=== PATIENT | female | born 1940 | race Caucasian/White ===

== ENCOUNTER 2016-07-04 12:00 | Outpatient (CLI) | payer MEDICARE, OTHER | END 2016-07-04 12:01 | disposition home or self-care (01) | DX: Z12.31 Encounter for screening mammogram for malignant neoplasm of breast (principal) ==

== ENCOUNTER 2016-07-04 12:18 | Outpatient (CLI) | payer MEDICARE, OTHER | END 2016-07-04 12:19 | disposition home or self-care (01) | DX: M25.551 Pain in right hip (principal); Z96.641 Presence of right artificial hip joint ==

== ENCOUNTER 2016-09-11 15:10 | Emergency (ER) | payer MEDICARE, OTHER | END 2016-09-11 17:41 | disposition home or self-care (01) | DX: S00.03XA Contusion of scalp, initial encounter (principal); W01.198A Fall on same level from slipping, tripping and stumbling with subsequent striking against other object, initial encounter; Y93.K1 Activity, walking an animal; Y92.488 Other paved roadways as the place of occurrence of the external cause; I10 Essential (primary) hypertension; M81.0 Age-related osteoporosis without current pathological fracture ==

== ENCOUNTER 2016-09-24 14:42 | Outpatient (CLI) | payer MEDICARE, OTHER | END 2016-09-24 14:43 | disposition home or self-care (01) | DX: R10.2 Pelvic and perineal pain (principal) ==

== ENCOUNTER 2018-11-03 16:37 | Emergency (ER) | payer MEDICARE, OTHER ==
--- NOTE | 2018-11-03 16:45 | ED Physician Documentation ---
PD HPI UPPER EXT INJURY - Stated complaint Stated Complaint: L SHOULDER PX - Chief complaint Chief Complaint: Trauma Ext - History obtained from History obtained from: Patient - History of Present Illness Location: Left, Shoulder Type of injury: Fall (tripped and fell onto left shoulder, feeling snap as she fell. Pain in shoulder, and hurts with any slight ROM. Denies injury to head/neck/chest/abd.) Where injury occurred: [place] Timing - onset: How many hours ago (1), Today Timing - details: Abrupt onset, Still present Worsened by: Moving, Palpating Associated symptoms: No: Weakness, Numbness Contributing factors: No: Anticoagulated Similar symptoms before: Has not had sx before Recently seen: Not recently seen Review of Systems Skin: reports: Abrasion (s). denies: Laceration (s) Musculoskeletal: denies: Neck pain, Back pain Neurologic: reports: Head injury. denies: Focal weakness, Numbness PD PAST MEDICAL HISTORY - Past Medical History Cardiovascular: Hypertension Musculoskeletal: Osteoporosis - Past Surgical History Past Surgical History: Yes Ortho: Hip replacement - Present Medications Home Medications: Ambulatory Orders Medication Instructions Recorded Confirmed Naproxen 500 mg PO BID #20 tablet 11/03/18 Oxycodone HCl/Acetaminophen 1 - 2 each PO Q6H PRN #25 tablet 11/03/18 [Percocet 5-325 mg Tablet] - Allergies Allergies/Adverse Reactions: Allergies Allergy/AdvReac Type Severity Reaction Status Date / Time No Known Drug Allergies Allergy Verified 11/03/18 16:44 - Social History Does the pt smoke?: No Smoking Status: Never smoker Does the pt drink ETOH?: No Does the pt have substance abuse?: No - Immunizations Immunizations are current?: No PD ED PE NORMAL - Vitals Vital signs reviewed: Yes - General General: Alert and oriented X 3, Well developed/nourished, Other (appears in pain, guarding ROM of the left shoulder. ) - HEENT HEENT: Atraumatic - Neck Neck: Supple, no meningeal sign, No bony TTP, No adenopathy - Cardiac Cardiac: RRR, No murmur - Respiratory Respiratory: Clear bilaterally, Other (no chestwall tenderness) - Abdomen Abdomen: Soft, Non tender - Derm Derm: Normal color, Warm and dry - Extremities Extremities: Other (left shoulder with tenderness, and pain with any slight movement. There is somewhat of a stepoff deformity/soft area under AC joint on left. ) - Neuro Neuro: Alert and oriented X 3, No motor deficit, No sensory deficit Results - Vitals Vitals: Vital Signs - 24 hr 11/03/18 16:42 Temperature 37.0 C Heart Rate 80 Respiratory 18 Rate Blood Pressure 154/86 H O2 Saturation 100 Oxygen O2 Source Room air - Rads (name of study) left shoulder Radiology: Prelim report reviewed, EMP read contemporaneously (comminuted proximal humeral fracture at neck, with angulation. ), See rad report PD MEDICAL DECISION MAKING - ED course Complexity details: considered differential (I thought was dislocated clinically, but is fractured with angulation on xray. Gave PO meds and she says this will be okay. ), d/w patient Departure - Departure Disposition: 01 Home, Self Care Clinical Impression: Fall from slip, trip, or stumble Qualifiers: Encounter type: initial encounter Qualified Code(s): W01.0XXA - Fall on same level from slipping, tripping and stumbling without subsequent striking against object, initial encounter Proximal humerus fracture Qualifiers: Encounter type: initial encounter Fracture type: closed Fracture morphology: other fracture Fracture alignment: displaced Laterality: left Qualified Code(s): S42.292A - Other displaced fracture of upper end of left humerus, initial encounter for closed fracture Condition: Stable Record reviewed to determine appropriate education?: Yes Instructions: ED Fx Shoulder Follow-Up: David Paul MD [Provider Admit Priv/Credential] - Prescriptions: Naproxen 500 mg PO BID #20 tablet Oxycodone HCl/Acetaminophen [Percocet 5-325 mg Tablet] 1 - 2 each PO Q6H PRN #25 tablet PRN Reason: pain Comments: Sling and minimal movement for comfort. Follow up with Ortho next week; call tomorrow for appt. Naproxen twice daily. Add Tylonel or Percocet as needed for pains. Discharge Date/Time: 11/03/18 18:24
[2018-11-03 16:48] VITALS: BP 154/86
[2018-11-03] MEDS ORDERED: HYDROmorphone 1 MG/ML CARPUJECT IVP STA (17:08)
--- NOTE | 2018-11-03 17:38 | XRAY Report ---
Reason: shoulder inj Procedure Date: 11/03/2018 Accession Number: [id number] / [id number] Procedure: XR - Shoulder 3 View LT CPT Code: FULL RESULT: EXAM: LEFT SHOULDER RADIOGRAPHY EXAM DATE: 11/03/2018 05:27 PM. CLINICAL HISTORY: Shoulder inj. COMPARISON: None. TECHNIQUE: 3 views. FINDINGS: Bones: Positive for a comminuted acute fracture of the proximal left humerus. Fracture extends transversely across the humeral neck and across the base of the greater tuberosity. No scapula or clavicle fracture. Joints: No dislocation. Soft tissues: Negative for left pneumothorax. IMPRESSION: Comminuted acute proximal left humerus fracture. RADIA
[2018-11-03] MEDS ORDERED: oxyCODONE 5 MG TABLET PO STA (17:47)
[2018-11-03] MEDS ORDERED: IBUPROFEN 600 MG TABLET PO STA (17:47)
== END 2018-11-03 18:24 | disposition home or self-care (01) ==
LOC: ED 16:37
DX: S42.202A Unspecified fracture of upper end of left humerus, initial encounter for closed fracture (principal); W01.0XXA Fall on same level from slipping, tripping and stumbling without subsequent striking against object, initial encounter; Y92.830 Public park as the place of occurrence of the external cause; I10 Essential (primary) hypertension
CPT/HCPCS: 73030; 99283; A9270

== ENCOUNTER 2018-11-15 10:45 | Outpatient (CLI) | payer MEDICARE, OTHER ==
[2018-11-15 11:11] LABS: BASOPHILS # (AUTO) 0.1 10^3/uL (0.0-0.1); BASOPHILS % (AUTO) 0.9 %; EOSINOPHILS # (AUTO) 0.1 10^3/uL (0.0-0.7); EOSINOPHILS % (AUTO) 1.4 %; HGB - HEMOGLOBIN 13.6 g/dL (12.0-16.0); LYMPHOCYTES # (AUTO) 2.3 10^3/uL (1.5-3.5); LYMPHOCYTES % (AUTO) 22.6 %; MEAN CORPUSCULAR HGB CONC 34.3 g/dL (32.0-36.0); MEAN CORPUSCULAR VOLUME 87.4 fL (81.0-99.0); MEAN PLATELET VOLUME 6.7 fL (7.9-10.8); MONOCYTES # (AUTO) 1.1 10^3/uL (0.0-1.0); MONOCYTES % (AUTO) 10.3 %; NEUTROPHILS # (AUTO) 6.7 10^3/uL (1.5-6.6); NEUTROPHILS % (AUTO) 64.8 %; PLT - PLATELET COUNT 358 10^3/uL (130-450); RED BLOOD COUNT 4.52 10^6/uL (4.20-5.40); RED CELL DISTRIBUTION WIDTH 13.6 % (12.0-15.0); WHITE BLOOD COUNT 10.3 x10^3/uL (4.8-10.8)
[2018-11-15 11:15] LABS: BILIRUBIN,URINE NEGATIVE (NEGATIVE); GLUCOSE, URINE (UA) NEGATIVE (NEGATIVE); KETONES,URINE (UA) NEGATIVE (NEGATIVE); LEUKOCYTE ESTERASE, URINE MODERATE (NEGATIVE); NITRITE,URINE NEGATIVE (NEGATIVE); OCCULT BLOOD,URINE SMALL (NEGATIVE); PROTEIN,URINE TRACE mg/dL (NEGATIVE); UROBILINOGEN,URINE 0.2 (NORMAL) E.U./dL (NORMAL)
[2018-11-15 11:16] LABS: CLARITY,URINE CLOUDY (CLEAR)
[2018-11-15 11:22] LABS: ALBUMIN 4.3 g/dL (3.2-5.5); ALBUMIN/GLOBULIN RATIO 1.5 (1.0-2.2); BILIRUBIN,TOTAL 0.9 mg/dL (0.2-1.0); CALCIUM 9.4 mg/dL (8.5-10.3); CREATININE 0.8 mg/dL (0.4-1.0); TOTAL PROTEIN 7.2 g/dL (6.7-8.2)
== END 2018-11-15 10:46 | disposition home or self-care (01) ==
LOC: LAB 10:45
PROVIDERS: ATTEND Orthopaedic Surgery Sports Medicine
DX: Z01.818 Encounter for other preprocedural examination (principal); S42.202D Unspecified fracture of upper end of left humerus, subsequent encounter for fracture with routine healing; S42.302A Unspecified fracture of shaft of humerus, left arm, initial encounter for closed fracture
CPT/HCPCS: 36415; 80053; 81003; 85025; 93005

== ENCOUNTER 2018-11-17 06:05 | Day surgery (SDC) | payer MEDICARE, OTHER ==
[2018-11-17] MEDS ORDERED: CEFAZOLIN SODIUM IN 0.9 % NACL 2 GM/100 ML BAG IV ONE ×2 (06:14→10:53)
[2018-11-17] MEDS ORDERED: LACTATED RINGERS 1,000 ML IV ONE ×3 (06:48→11:55)
--- NOTE | 2018-11-17 06:57 | ANESTHESIA ---
Pre-Anesthesia VS, & Labs - Diagnosis left proximal humerus fracture - Procedure orif of left proximal humerus Vital Signs: Temp Pulse Resp BP Pulse Ox 36.4 C L 91 99 H 185/103 H 99 11/17/18 06:20 11/17/18 06:20 11/17/18 06:20 11/17/18 06:20 11/17/18 06:20 Height 5 ft 4 in Weight (kg) 61 kg Body Mass Index 23.0 - NPO >8 hours - Is Patient ?: Not Applicable Home Medications and Allergies Home Medications: Ambulatory Orders Multivitamin [Daily Multiple Vitamin] 1 each PO DAILY 11/15/18 Multivitamin [Daily Multiple Vitamin] 1 each PO DAILY 11/15/18 Allergies/Adverse Reactions: Allergies Allergy/AdvReac Type Severity Reaction Status Date / Time Opioids - Morphine Analogues AdvReac Nausea Verified 11/15/18 09:25 Anes History & Medical History - Anesthetic History Anesthesia Complications: reports: Post-Operative Nausea/Vomiting Family history of Anesthesia Complications: Denies Family history of Malignant Hyperthermia: Denies - Medical History Cardiovascular: reports: Hypertension Pulmonary: reports: None Gastrointestinal: reports: None Urinary: reports: None Musculoskeletal: reports: Osteoarthritis, Chronic back pain, Other Endocrine/Autoimmune: reports: None Skin: reports: None Smoking Status: Never smoker - Surgical History Orthopedic: Hip replacement Exam General: Alert, Oriented x3, Cooperative, No acute distress Dental: Other (caps) Mouth Openin Fingerbreadth Neck Mobility: Normal Mallampati classification: II Thyromental Distance: 4-6 cm Respiratory: Lungs clear, Normal breath sounds, No respiratory distress, No accessory muscle use Cardiovascular: Regular rate, Normal S1, Normal S2 Mental/Cognitive Status: Alert/Oriented X3, Normal for patient Plan Anesthesia Type: General Consent for Procedure(s) Verified and Reviewed: Yes Code Status: Attempt Resuscitation ASA classification: 2-Mild systemic disease Is this case an emergency?: No
[2018-11-17] MEDS ORDERED: ROPIVACAINE 0.5% PF 20 ML AMPULE ONE (07:18)
[2018-11-17] MEDS ORDERED: BUPIVACAINE 0.25% PF 30 ML VIAL ONE (07:24)
[2018-11-17] MEDS ORDERED: SCOPOLAMINE PATCH TOP ONE (07:34)
[2018-11-17] MEDS ORDERED: BUPIVACAINE 0.25%-EPI 1:200000 PF 30 ML VIAL ONE (07:37)
[2018-11-17] MEDS ORDERED: BUPIVACAINE 0.25%-EPI 1:200000 PF 30 ML VIAL SUBQ ONE (08:24)
[2018-11-17] MEDS ORDERED: SUGAMMADEX 200 MG/2 ML VIAL IVP ONE ×2 (10:30→10:53)
[2018-11-17] MEDS ORDERED: ACETAMINOPHEN 1,000 MG/100 ML 100 ML IV ONE (10:53)
[2018-11-17] MEDS ORDERED: DEXAMETHASONE 4 MG/ML VIAL IVP ONE (10:53)
[2018-11-17] MEDS ORDERED: ONDANSETRON 4 MG/2 ML VIAL IVP ONE (10:53)
[2018-11-17] MEDS ORDERED: PROPOFOL 200 MG/20 ML VIAL IVP ONE (10:53)
[2018-11-17] MEDS ORDERED: ROCURONIUM 50 MG/5 ML VIAL IVP ONE (10:53)
[2018-11-17] MEDS ORDERED: ePHEDrine 50 MG/ML VIAL IVP ONE (10:53)
[2018-11-17] MEDS ORDERED: fentaNYL 100 MCG/2 ML VIAL IVP ONE (10:53)
--- NOTE | 2018-11-17 11:09 | IMMEDIATE POSTOPERATIVE NOTE ---
Immediate Postoperative Note - Procedure Note Procedure Date: 11/17/18 Pre-Op Diagnosis: Left proximal humerus fracture Procedure: Left proximal humerus ORIF Post-Op Diagnosis: Same Primary Surgeon: Tracey Paul MD Commission Agent [employer]estock: JUANJO Anesthesia Type: General ET tube, Local Findings: As above Complications: No complications Estimated Blood Loss (in cc): 100 Plan of Care: Patient tolerated procedure well instrument and sponge counts correct patient transferred to recovery room in stable condition. Patient will follow standard postoperative left proximal humerus open reduction internal fixation protocol.
[2018-11-17] MEDS ORDERED: ONDANSETRON 4 MG/2 ML VIAL IVP PRN (11:16)
[2018-11-17] MEDS ORDERED: oxyCODONE 5 MG TABLET PO PRN (11:16)
[2018-11-17] MEDS ORDERED: ONDANSETRON 4 MG/2 ML VIAL ONE (11:19)
[2018-11-17] MEDS ORDERED: PROMETHAZINE 25 MG/1 ML VIAL ONE (11:29)
[2018-11-17] MEDS ORDERED: KETOROLAC 15 MG/ML VIAL ONE (11:41)
[2018-11-17] MEDS ORDERED: ACETAMINOPHEN 500 MG TABLET PO ONE (12:50)
[2018-11-17 16:00] VITALS: BP 146/77
--- NOTE | 2018-11-18 23:56 | OPERATIVE REPORT ---
DATE OF SERVICE: 11/17/2018 Physician: David Paul MD SURGEON: David Paul MD ANESTHESIOLOGIST: Gino Johnson MD ANESTHESIA TYPE: General anesthesia endotracheal as well as 30 mL of 0.25% Marcaine with epinephrine local. ESTIMATED BLOOD LOSS: 100 mL COMPRESSION DEVICE: Bilateral calf SCD boots. PREOPERATIVE ANTIBIOTICS: 2 grams weight-based IV Ancef. PREOPERATIVE DIAGNOSIS: Left proximal humerus displaced fracture. POSTOPERATIVE DIAGNOSIS: Left proximal humerus displaced fracture. PROCEDURE: Left proximal humerus open reduction and internal fixation. INTRAOPERATIVE COMPLICATIONS: None noted. INTRAOPERATIVE FINDINGS: The patient was noted to have a significantly displaced left proximal humer us fracture with the humeral shaft apex anterior angulated and translated 100% anteriorly with shorte jean. The fracture was somewhat unstable with attempts to relocate the humeral head on the shaft, al though ultimately was able to remain stable with some minimal impaction and hardware fixation. There was noted to be extraarticular hardware and good integrity of the repair post-fixation. There was n oted to be overall near anatomic head and shaft alignment with expected impaction. 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 She is right-hand dominant. She injured her left proximal humerus a number of days ago, was indicated for operative treatment. Please see previous clinic discussion for risks, benefi ts, alternatives which were again highlighted with her and her friend in the preoperative area. The patient's questions were answered. She verbalized understanding of the discussion and verbalized her wish to proceed with surgery as above. Informed consent was given. DESCRIPTION OF PROCEDURE: On 11/17/2018, the patient was identified in the preoperative care unit. She identifies the left shoulder as the operative site. This was signed by the operating surgeon. T he patient received preoperative weight-based IV antibiotics. She was then brought to the operating room. General anesthesia was administered. The head, neck and extremities are placed in anatomicall y comfortable and safe positions to avoid peripheral nerve stretch compression and any injury and she was placed in a beach chair position in the standard OR table. At this point, the left upper extremity was draped out and then she was pre-scrubbed on the left shou lder with Hibiclens solution and then alcohol, and then prepped and draped in the usual sterile fashi on with ChloraPrep solution. At this time, surgical pause identifies the left shoulder as the operative site. At this point, a de ltopectoral incision was made through skin, spreading the dissection carried out, hemostasis achieved down to the deltopectoral interval where the cephalic vein was brought laterally with the deltoid. Blunt dissection was carried down to the subacromial and subdeltoid space with a Roberto and lap pad. A t this point, the clavipectoral fascia was entered and then a Sukhjinder retractor was used to retract a gainst the conjoined tendon and deltoid laterally. Care was taken to avoid exuberant retraction to a void adjacent neurovascular injury. At this point, fibrous tissue, hematoma and bursal tissue are de brided such that the fracture fragments could be identified. The shaft was noted to be well short an d anterior. Long head biceps groove was identified. At this point, the tendo-osseous junction of th e subscapularis, supraspinatus and infraspinatus were all captured using heavy Vicryl suture at which point a Roberto was used to facilitate reduction of the head onto the shaft. Multiple attempts show th at this continues to collapse, as such a third attempt with somewhat initial over reduction allows pr ovisional fixation with K-wires to maintain an acceptable reduction in multiple planes. Then at this point, the previously noted FiberWires were placed through a 3-hole proximal humerus locking plate, [employer] [place]. This plate was placed just lateral to the bicipital groove at an appropriate he ight and then provisionally fixed in place and then ultimately once fluoroscopic image confirms accep table position, then the oval hole is drilled and a screw was placed there and then provisional fixat ion with 2 proximal locking screws and then repeat fluoroscopic image confirms acceptable fracture an d hardware position. At this point, remaining screws have locking fixation placed. It should be not ed that there was initial changing of the nonlocking screw to bring the plate more proximal for appro priate height. At this point, after fixation using all appropriate screw holes and confirming acceptable fracture an d hardware position, the #5 FiberWire sutures were tied over the plate, thereby further capturing and controlling the fracture pieces. The suture limbs were then oversewn to decrease the risk of irrita tion. At this time, copious irrigation is performed. Deltopectoral interval was closed using large Vicryl suture, followed by skin closure using 0 Vicryl, 2-0 Vicryl, and interrupted nylon suture, taking car e to align the skin appropriately given the patient's tattoo. The skin is washed and dried. Local anesthetic was infused and then a silver dressing was applied Bi oclusive. The patient was placed in a regular sling immobilizer. The patient tolerated the procedure well. Instrument and sponge counts were correct. The patient wa s transferred to recovery room in stable condition and will follow standard postoperative left proxim al humerus ORIF protocol. The patient will be given perioperative analgesia medications, antinausea medications and perioperati ve antibiotics. The patient is advised to take [id number] stool softener while on narcotics. The patient notes that she did not have an allergy to narcotics, but rather is sensitive and would li ke to try Dilaudid, which she has not had any adverse reaction to in the past. They will notify us i f problems or questions arise. The patient's friend was contacted in the waiting room. The case was discussed. Questions were answ ered. She verbalized understanding and satisfaction with the plan as outlined as had been with the p atient previously. TD: 11/18/2018 13:03
== END 2018-11-17 06:06 | disposition home or self-care (01) ==
LOC: SDS 06:05
PROVIDERS: ATTEND Orthopaedic Surgery Sports Medicine
PROC: 0PSD04Z Reposition Left Humeral Head with Internal Fixation Device, Open Approach (ICD-10-PCS; principal; 2018-11-17 07:30)
DX: S42.212A Unspecified displaced fracture of surgical neck of left humerus, initial encounter for closed fracture (principal); I10 Essential (primary) hypertension; Z87.891 Personal history of nicotine dependence; Z87.898 Personal history of other specified conditions
CPT/HCPCS: 23615; A9270; C1713; J0690; J3490; J7120

== ENCOUNTER 2020-08-01 07:54 | Emergency (ER) | payer MEDICARE, OTHER ==
--- NOTE | 2020-08-01 08:26 | ED Physician Documentation ---
History of Present Illness - Stated complaint Stated Complaint: GLF,RT KNEE INJURY,RT HAND INJURY - Chief complaint Chief Complaint: Trauma Ext - History obtained from History obtained from: Patient - Additonal information Additional information: Patient comes emergency department chief complaint of ground-level fall yesterday with right knee pain. Patient states that she was out for a walk which is her normal habit, and a friend's dog ran into her. Patient states that she fell to the ground striking her right knee and apparently, her right hand. Patient states she does not notice any pain or problem in her right hand but had knee pain right away. She states that she has been hobbling around on the knee but that it hurts when she bears weight. It does not hurt so much if she is just doing unweighted passive flexion and extension. Patient has not noticed any bruising and has noticed minimal welling of the knee. She states that she noticed bruising of her right thumb and thenar eminence/soft tissue superficial to the first metacarpal bone this morning. She states she has been able to move the thumb without pain and that it feels slightly "sore". She does note that she has less ability to flex at the IP joint than she usually would, but that it seems like this is mainly because it is swollen. Patient denies any rib pain or spinal pain. No hip pain. No other complaints at this time. Review of Systems Ten Systems: 10 systems reviewed and negative Constitutional: reports: Reviewed and negative Eyes: reports: Reviewed and negative Ears: reports: Reviewed and negative Nose: reports: Reviewed and negative Throat: reports: Reviewed and negative Cardiac: reports: Reviewed and negative Respiratory: reports: Reviewed and negative GI: reports: Reviewed and negative : reports: Reviewed and negative Skin: reports: Reviewed and negative Musculoskeletal: reports: Extremity pain, Joint pain, Pain with weight bearing Neurologic: reports: Reviewed and negative Psychiatric: reports: Reviewed and negative Endocrine: reports: Reviewed and negative Immunocompromised: reports: Reviewed and negative PD PAST MEDICAL HISTORY - Past Medical History Cardiovascular: Hypertension Respiratory: None Endocrine/Autoimmune: None GI: None : None HEENT: Chronic vision loss Psych: Depression, Anxiety Musculoskeletal: Osteoarthritis, Chronic back pain, Other Derm: None - Past Surgical History Past Surgical History: Yes Ortho: Hip replacement - Present Medications Home Medications: Ambulatory Orders Medication Instructions Recorded Confirmed Multivitamin [Daily Multiple 1 each PO DAILY 11/15/18 08/01/20 Vitamin] Lisinopril [Prinivil] 15 mg PO DAILY 08/01/20 08/01/20 traMADol [Ultram] 50 mg PO Q4-6H PRN #25 08/01/20 - Allergies Allergies/Adverse Reactions: Allergies Allergy/AdvReac Type Severity Reaction Status Date / Time Opioids - Morphine Analogues AdvReac Nausea Verified 08/01/20 08:00 - Social History Does the pt smoke?: No Smoking Status: Never smoker Does the pt drink ETOH?: No Does the pt have substance abuse?: No - Immunizations Immunizations are current?: No - POLST Patient has POLST: No PD ED PE NORMAL - Vitals Vital signs reviewed: Yes - General General: Alert and oriented X 3, No acute distress - HEENT HEENT: Atraumatic, PERRL, EOMI, Moist mucous membranes - Neck Neck: Supple, no meningeal sign - Cardiac Cardiac: RRR, No murmur, Strong equal pulses - Respiratory Respiratory: No respiratory distress, Clear bilaterally - Abdomen Abdomen: Soft, Non tender, Non distended - Back Back: No spinal TTP - Derm Derm: Normal color, Warm and dry, No rash - Extremities Extremities: No deformity, Other (Mild L knee edema. No pain with passive motion. Point tenderness at lateral joint line.) - Neuro Neuro: Alert and oriented X 3, No motor deficit, No sensory deficit - Psych Psych: Normal mood, Normal affect Results - Vitals Vitals: Oxygen O2 Source Room air - Rads (name of study) R knee XR Radiology: Final report received, EMP read indepedently, See rad report (non- acute tibial plateau fx) R knee CT Radiology: Final report received, EMP read indepedently, See rad report (Schatzker III tibial plateau fx, 3 mm depression, acute) PD MEDICAL DECISION MAKING - ED course Complexity details: reviewed results, re-evaluated patient, considered differential, d/w patient ED course: Pt's exam was fairly benign, but she was clearly a physically able person, and I was concerned about the degree of pain she was having with weight-bearing. I suspected a tibial plateau fx. Initially, x-ray showed what appeared to be an old tibial plateau fx, as interpreted by radiology; however, pt stated she had never had a significant knee injury, so I obtained a CT scan. This showed that the fx was actually acute. There was minimal depression, and I felt the pt could follow up with ortho. She was placed in a rigid velcro splint and given crutches with strict NWB instructions. She also has a walker at home, but I have advised her that she cannot make use of the injured side until cleared by ortho, so the walker may not be ideal. Pt has been treated symptomatically in the ED, and we have discussed home management of the sx, as well as the usual indications for return. I have given her orthopedic follow-up. Departure - Departure Disposition: Home, Self Care Clinical Impression: Tibial plateau fracture, right Qualifiers: Encounter type: initial encounter Fracture type: closed Qualified Code(s): S82.141A - Displaced bicondylar fracture of right tibia, initial encounter for closed fracture Condition: Stable Instructions: ED Fx Lower Ext Follow-Up: Ervin Tam MD [Provider Admit Priv/Credential] - Prescriptions: traMADol [Ultram] 50 mg PO Q4-6H PRN #25 PRN Reason: Pain Comments: Your CT scan shows that the fracture which was thought to be old on your x-ray is actually new. There is not much depression of the bone, which is good, and this will most likely heal well with just immobilization. However, you will need to strictly keep weight off of your foot and leg until cleared to bear weight by orthopedics. Please keep the splint on at all times unless you are bathing., Or changing clothes. Please use the crutches to help yourself to get around without bearing weight. Please call the orthopedist office as soon as possible, preferably this afternoon, to make a follow-up appointment to be seen within the week. You may take ibuprofen and the pain medication prescribed, as needed. Please apply ice packs for 20 to 30 minutes at a time, several times a day, to help with the pain and swelling. Discharge Date/Time: 08/01/20 12:27
--- NOTE | 2020-08-01 08:58 | XRAY Report ---
PROCEDURE: Knee 3 View RT INDICATIONS: fall/pain with weight-bearing TECHNIQUE: 3 views of the right knee(s) were acquired. COMPARISON: None. FINDINGS: Bones: No acute fractures or dislocations, but there is a inferior angulation of the lateral tibial plateau with an appearance consistent with old trauma and a depressed lateral tibial plateau fracture that has healed.. No suspicious bony lesions. Soft tissues: No joint effusion. No suspicious soft tissue calcifications. IMPRESSION: Old depressed healed lateral tibial plateau fracture. No joint effusion seen. A thin rosangela ency is noted at the interspinous notch of the proximal tibial border, which conceivably could repres ent a new injury but is considered more likely sequela of old injury. If unusual symptomatology sugge sts potential fracture MR scanning provides the most accurate assessment for hidden injury. Reviewed by: Zack Plaza MD on 08/01/2020 8:56 AM PST Approved by: Zack Plaza MD on 08/01/2020 8:56 AM PST Station ID: [id number]
--- NOTE | 2020-08-01 10:26 | CT Report ---
PROCEDURE: LOWER EXTREMITY WO - RT INDICATIONS: knee pain with WB, fall TECHNIQUE: Noncontrast 3 mm axial sections acquired of the right knee, with coronal and sagittal reformats. COMPARISON: Radiographs performed earlier the same day. FINDINGS: Image quality: Excellent. Bones: Bones are diffusely demineralized. Joint alignment is normal. There is a minimally depressed, nondisplaced acute fracture involving the lateral tibial plateau art icular surface. There is focal depression of the articular surface without an associated split of the metaphysis. There is about 3 mm of depression of the articular surface fragment. No definite widenin g of the medial compartment joint space. Soft tissues: A small joint effusion is present and there is mild hemorrhage or edema tracking cauda lly within the intramuscular planes.. IMPRESSION: 1. Schatzker type III lateral tibial plateau fracture with about 3 mm of depression. Reviewed by: Dafne rPadhan MD on 08/01/2020 9:25 AM [place] Approved by: Dafne Pradhan MD on 08/01/2020 9:25 AM [facility] Station ID: [id number]
[2020-08-01 11:42] VITALS: BP 138/79
== END 2020-08-01 12:27 | disposition home or self-care (01) ==
LOC: ED 07:54
DX: S82.141A Displaced bicondylar fracture of right tibia, initial encounter for closed fracture (principal); S60.221A Contusion of right hand, initial encounter; W54.1XXA Struck by dog, initial encounter; W18.39XA Other fall on same level, initial encounter; Y93.01 Activity, walking, marching and hiking; Y92.830 Public park as the place of occurrence of the external cause; I10 Essential (primary) hypertension
CPT/HCPCS: 99283; 99284

== ENCOUNTER 2020-09-07 07:00 | Outpatient (CLI) | payer MEDICARE, OTHER ==
--- NOTE | 2020-09-07 15:43 | XRAY Report ---
PROCEDURE: Knee Standing RT INDICATIONS: RIGHT TIBIA FRACTURE TECHNIQUE: 3 views of the right knee, and 1 views of the left knee. COMPARISON: 08/01/2020. FINDINGS: Bones: There is interval healing at patient's known lateral tibial plateau fracture with chronic appe aring slight depression near its lateral periphery measures up to 3 to 4 mm in distance unchanged fro m prior study. Osteoarthritic changes in lateral femoral tibial compartment and patellofemoral compar tment is seen. Moderate left medial femoral tibial compartment osteoarthritic changes also noted with suggestion of osteochondral lesion in weightbearing portion of left medial femoral condyle. No suspi cious bony lesions. Soft tissues: No knee joint effusions. No suspicious soft tissue calcification. IMPRESSION: 1. Healing minimally depressed lateral tibial plateau fracture with anatomic right knee alignment. No new fracture or dislocation. Osteoarthritic changes in lateral femoral tibial compartment and patell ofemoral compartment of right knee. 2. Incidentally noted is moderate left medial femoral tibial compartment osteoarthritis with suggesti on of tiny osteochondral lesion in weightbearing portion of medial femoral condyle on the left side. Reviewed by: Brian Mcnair MD on 09/07/2020 3:42 PM PDT Approved by: Brian Mcnair MD on 09/07/2020 3:42 PM PDT Station ID: [id number]
== END 2020-09-07 23:59 | disposition home or self-care (01) ==
LOC: DI.N 07:00
PROVIDERS: ATTEND Physician Assistant
DX: S82.141D Displaced bicondylar fracture of right tibia, subsequent encounter for closed fracture with routine healing (principal); M17.11 Unilateral primary osteoarthritis, right knee

== ENCOUNTER 2020-12-17 17:53 | Emergency (ER) | payer MEDICARE, OTHER ==
--- NOTE | 2020-12-17 19:20 | XRAY Report ---
PROCEDURE: Shoulder 3 View RT INDICATIONS: shoulder inj TECHNIQUE: 3 views of the shoulder were acquired. COMPARISON: None. FINDINGS: Bones: There is a comminuted displaced fracture involving the humeral head and neck, at least 3 parts , with mild impaction along the fracture planes of the humeral head/neck junction. The AC joint is mo derately degenerated. Significant inferior subluxation along the glenohumeral articulation is associa marcus with the trauma.. No suspicious bony lesions. Visualized ribs appear intact. Soft tissues: No suspicious soft tissue calcifications. IMPRESSION: Humeral head/neck junction fracture, with comminution involving the humeral head. Impact ion at the fracture plane and abnormal anterior subluxation may indicate joint effusion or ligamentou s injury as the underlying cause. Reviewed by: Zack Plaza MD on 12/17/2020 7:18 PM PDT Approved by: Zack Plaza MD on 12/17/2020 7:18 PM PDT Station ID: [id number]
[2020-12-17] MEDS ORDERED: HYDROcod/ACET 5/325 Prepack 4 PO STA (20:02)
[2020-12-17] MEDS ORDERED: HYDROcod/ACETAM 5/325 MG TABLET PO STA (20:02)
--- NOTE | 2020-12-17 20:04 | ED Physician Documentation ---
PD HPI UPPER EXT INJURY - Stated complaint Stated Complaint: FALL, RIGHT SHOULDER INJURY - Chief complaint Chief Complaint: Trauma Ext - History obtained from History obtained from: Patient (Trip and fall while walking her dogs earlier today, initially onto her knees which do not bother her at all but subsequently onto her right shoulder which is significantly painful. 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 : None HEENT: Chronic vision loss Psych: Depression, Anxiety Musculoskeletal: Osteoarthritis, Chronic back pain, Other Derm: None - Past Surgical History Past Surgical History: Yes Ortho: Hip replacement - Present Medications Home Medications: Ambulatory Orders Medication Instructions Recorded Confirmed Multivitamin [Daily Multiple 1 each PO DAILY 11/15/18 08/01/20 Vitamin] lisinopriL [Prinivil] 15 mg PO DAILY 08/01/20 08/01/20 traMADol [Ultram] 50 mg PO Q4-6H PRN #25 08/01/20 HYDROcod/ACETAM 5/325 [[place] 5/325] 1 - 2 tab PO Q6H PRN #15 tablet 12/17/20 - Allergies Allergies/Adverse Reactions: Allergies Allergy/AdvReac Type Severity Reaction Status Date / Time Opioids - Morphine Analogues AdvReac Nausea Verified 12/17/20 18:03 - Social History Does the pt smoke?: No Smoking Status: Never smoker Does the pt drink ETOH?: No Does the pt have substance abuse?: No - Immunizations Immunizations are current?: No Immunizations: TDAP >10years/unknown - POLST Patient has POLST: No PD ED PE NORMAL - Vitals Vital signs reviewed: Yes - General General: Alert and oriented X 3, No acute distress - HEENT HEENT: PERRL - Neck Neck: No bony TTP - Back Back: No CVA TTP, No spinal TTP - Derm Derm: Normal color, Warm and dry - Extremities Extremities: Other (Quite tender over the upper humerus without deformity. Unable to range the right shoulder due to pain. Both knees are nontender with a tiny abrasion over the left knee.) - Neuro Neuro: Alert and oriented X 3, Normal speech Results - Vitals Vitals: Vital Signs - 24 hr 12/17/20 18:03 Temperature 36.5 C Heart Rate 76 Respiratory 16 Rate Blood Pressure 146/76 H O2 Saturation 95 Oxygen O2 Source Room air Departure - Departure Disposition: 01 Home, Self Care Clinical Impression: Fracture, humerus closed Qualifiers: Encounter type: initial encounter Humerus Location: proximal Fracture alignment: displaced Laterality: right Condition: Good Record reviewed to determine appropriate education?: Yes Instructions: ED Fx Upper Ext Follow-Up: Sunil Mckeon MD [Provider Admit Priv/Credential] - Prescriptions: HYDROcod/ACETAM 5/325 [[place] 5/325] 1 - 2 tab PO Q6H PRN #15 tablet PRN Reason: Pain Comments: Wear the sling until you follow-up with the orthopedist, return for new or worsening symptoms. Tylenol or ibuprofen if pain is mild. You can take the prescription pain medicine when the pain is more severe. Call the office tomorrow for that appointment. I am prescribing a short course of narcotic pain medication for you. These are potentially dangerous and addictive medications that should be used carefully. These medications may constipate you. Take an zzri-pvz-kyyzzrt stool softener (docusate) twice daily with plenty of water while taking these medications. If you go 24 hours without a bowel movement, take [id number]-[id number] miralax, per package instructions. Do not drink or drive while taking these medications. If you received narcotic or sedating medications while in the emergency department, do not drive for 24 hours. Store this medication in a safe, secure place and out of reach of children. It is a violation of federal law to give or sell this medication to another person or to use in a manner other than prescribed. The ED will not refill narcotic prescriptions, including prescriptions lost or stolen. To dispose of unwanted medications: 1. [facility] [address] in [place] has a medication drop box. They accept prescription medications (in pill form) Thursday through Thursday 9:00 a.m. to 5:00 p.m. 2. [facility] accepts prescription medications (in pill form only) for disposal year round. Call for more information. 3. Contact the [facility] for the next [facility] sponsored prescription drug collection event. , [phone], or [phone]; Note that many narcotic pain relievers also contain Tylenol/acetaminophen. Please ensure that your total dose of acetaminophen from all sources does not exceed 3 g (3000 mg) per day.
[2020-12-17 20:18] VITALS: BP 173/95
== END 2020-12-17 20:49 | disposition home or self-care (01) ==
LOC: ED 17:53
DX: S42.291A Other displaced fracture of upper end of right humerus, initial encounter for closed fracture (principal); W01.0XXA Fall on same level from slipping, tripping and stumbling without subsequent striking against object, initial encounter; Y93.K1 Activity, walking an animal
CPT/HCPCS: 73030; 99283; A9270

== ENCOUNTER → 2021-01-03 | Outpatient (CLI) | payer MEDICARE, OTHER ==
--- NOTE | 2021-01-03 13:22 | XRAY Report ---
PROCEDURE: Shoulder 3 View RT INDICATIONS: 4-PART FX OF SURGICAL NECK OF R HUMERUS TECHNIQUE: 3 views of the shoulder were acquired. COMPARISON: 12/17/2020 FINDINGS: Bones: Interval worsening alignment of a comminuted fracture of the humeral head and neck with overri ding and displacement. No dislocation. No suspicious bony lesions. Visualized ribs appear intact. Soft tissues: No suspicious soft tissue calcifications. IMPRESSION: Interval worsening alignment of a comminuted fracture of the right humeral head and neck . Reviewed by: Imer Nance MD on 01/03/2021 1:20 PM PDT Approved by: Imer Nance MD on 01/03/2021 1:20 PM PDT Station ID: [id number]
== END ==
LOC: DI.N 18:39
PROVIDERS: ATTEND Orthopaedic Surgery
DX: S42.241A 4-part fracture of surgical neck of right humerus, initial encounter for closed fracture (principal)

== ENCOUNTER 2021-02-07 10:00 | Outpatient (CLI) | payer MEDICARE, OTHER ==
--- NOTE | 2021-02-07 18:11 | XRAY Report ---
PROCEDURE: Shoulder 3 View RT INDICATIONS: 4-PART FX OF SURGICAL NECK OF R HUMERUS TECHNIQUE: 3 views of the shoulder were acquired. COMPARISON: Prior humeral series dated 01/03/2021 FINDINGS: Bones: Comminuted humeral head neck fracture redemonstrated which is moderately impacted and appears similar in alignment compared to prior examination. Background osteophytic changes redemonstrated.. No suspicious bony lesions. Visualized ribs appear intact. Soft tissues: No suspicious soft tissue calcifications. IMPRESSION: No significant change in appearance or alignment of comminuted fracture of the right hum eral head/neck. Reviewed by: SUSAN Benton on 02/07/2021 6:09 PM PDT Approved by: Joe Payne on 02/07/2021 6:09 PM PDT Station ID: [id number]
== END 2021-02-07 23:59 | disposition home or self-care (01) ==
LOC: DI.N 10:00
PROVIDERS: ATTEND Orthopaedic Surgery
DX: S42.241D 4-part fracture of surgical neck of right humerus, subsequent encounter for fracture with routine healing (principal)

== ENCOUNTER 2023-04-29 18:53 | Outpatient (CLI) | payer MEDICARE, OTHER | END 2023-04-29 18:54 | disposition critical access hospital (66) | LOC: EMS 18:53 | DX: R41.82 Altered mental status, unspecified (principal) | CPT/HCPCS: A0425; A0429 ==

== ENCOUNTER 2023-04-29 19:14 | Emergency (ER) | payer MEDICARE, OTHER ==
--- NOTE | 2023-04-29 19:21 | ED Physician Documentation ---
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 patient has reportedly experienced intermittent confusion/cognitive decline for the past several months per ems and is going to live with her sister tomorrow. currently lives alone. patient AOX2 at baseline, denies falling or hitting head and says she laid in the dog bed on purpose. denies complaints. denies biting tongue or incontinence or urine or stool. 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 : None HEENT: Chronic vision loss Psych: Depression, Anxiety Musculoskeletal: Osteoarthritis, Chronic back pain, Other Derm: None - Past Surgical History Past Surgical History: Yes Ortho: Hip replacement - Present Medications Home Medications: Ambulatory Orders Medication Instructions Recorded Confirmed Multivitamin [Daily Multiple 1 each PO DAILY 11/15/18 08/01/20 Vitamin] lisinopriL [Prinivil] 15 mg PO DAILY 08/01/20 08/01/20 traMADol [Ultram] 50 mg PO Q4-6H PRN #25 08/01/20 HYDROcod/ACETAM 5/325 [[place] 5/325] 1 - 2 tab PO Q6H PRN #15 tablet 12/17/20 - Allergies Allergies/Adverse Reactions: Allergies Allergy/AdvReac Type Severity Reaction Status Date / Time Opioids - Morphine Analogues AdvReac Nausea Verified 04/29/23 19:42 - Social History Does the pt smoke?: No Smoking Status: Never smoker Does the pt drink ETOH?: No Does the pt have substance abuse?: No - Immunizations Immunizations are current?: No Immunizations: TDAP >10years/unknown - POLST Patient has POLST: No PD ED PE NORMAL - Vitals Vital signs reviewed: Yes - General General: Alert and oriented X 3, No acute distress, Well developed/nourished - HEENT HEENT: Atraumatic, PERRL, EOMI - Neck Neck: Supple, no meningeal sign - Cardiac Cardiac: RRR - Respiratory Respiratory: No respiratory distress, Clear bilaterally - Abdomen Abdomen: Non tender, Non distended - Derm Derm: Normal color, Warm and dry - Neuro Neuro: edger saw operator 2-12 intact, No motor deficit, No sensory deficit, Normal speech, Other (AOX2, at baseline per friend at bedside) Eye Opening: Spontaneous Motor: Obeys Commands Verbal: Oriented GCS Score: 15 - Psych Psych: Normal mood, Normal affect Results - Vitals Vitals: Vital Signs - 24 hr 04/29/23 04/29/23 19:17 20:03 Temperature 36.0 C L Heart Rate 85 Respiratory 18 Rate Blood Pressure 166/77 H 149/71 H O2 Saturation 100 Oxygen O2 Source Room air - Labs Labs: Laboratory Tests 04/29/23 04/29/23 04/29/23 19:35 19:48 19:48 WBC 14.1 H RBC 4.50 Hgb 14.3 Hct 41.8 MCV 92.9 MCH 31.8 H MCHC 34.2 RDW 12.4 Plt Count 270 MPV 9.3 Neut # (Auto) 11.8 H Lymph # (Auto) 1.6 [place] # (Auto) 0.6 Eos # (Auto) 0.0 Baso # (Auto) 0.0 Absolute Nucleated RBC 0.00 Nucleated RBC % 0.0 Sodium 136 Potassium 3.2 L Chloride 97 L Carbon Dioxide 24 Anion Gap 15.0 H BUN 30 H Creatinine 1.1 Estimated GFR (MDRD) 48 L Glucose 125 H POC Whole Bld Glucose Calcium 10.5 H Total Bilirubin 0.9 AST 19 ALT 13 Alkaline Phosphatase 72 Total Protein 7.3 Albumin 4.9 Globulin 2.4 Albumin/Globulin Ratio 2.0 Lipase 43 Urine Color YELLOW Urine Clarity HAZY Urine pH 6.0 Ur Specific [place] 1.020 Urine Protein NEGATIVE Urine Glucose (UA) NEGATIVE Urine Ketones 15 H Urine Occult Blood NEGATIVE Urine Nitrite NEGATIVE Urine Bilirubin NEGATIVE Urine Urobilinogen 0.2 (NORMAL) Ur Leukocyte Esterase NEGATIVE Urine RBC 0-5 Urine WBC 0-3 Ur Squamous Epith Cells FEW Squamous Amorphous Sediment Few Urine Bacteria Moderate H Urine Mucus Few Strands Ur Microscopic Review INDICATED Urine Culture Comments NOT INDICATED 04/29/23 20:02 WBC RBC Hgb Hct MCV MCH MCHC RDW Plt Count MPV Neut # (Auto) Lymph # (Auto) [place] # (Auto) Eos # (Auto) Baso # (Auto) Absolute Nucleated RBC Nucleated RBC % Sodium Potassium Chloride Carbon Dioxide Anion Gap BUN Creatinine Estimated GFR (MDRD) Glucose POC Whole Bld Glucose 118 H Calcium Total Bilirubin AST ALT Alkaline Phosphatase Total Protein Albumin Globulin Albumin/Globulin Ratio Lipase Urine Color Urine Clarity Urine pH Ur Specific [place] Urine Protein Urine Glucose (UA) Urine Ketones Urine Occult Blood Urine Nitrite Urine Bilirubin Urine Urobilinogen Ur Leukocyte Esterase Urine RBC Urine WBC Ur Squamous Epith Cells Amorphous Sediment Urine Bacteria Urine Mucus Ur Microscopic Review Urine Culture Comments PD Medical Decision Making - ED course ED course: 82yF presents to the ED with confusion X several months, worsening apparently tonight. CT head, CBC, abdominal panel and ua ordered for AMS eval. will f/u results. CT head noncontributory per my interpretation and that of outside radiologist. Some leukocytosis with white blood cell count 14.1 but without infectious symptoms. potassium 3.2, repleted orally. Patient well appearing with normal neuro exam. Advised outpatient follow-up with primary care provider. Return precautions given. Departure - Departure Disposition: 01 Home, Self Care Clinical Impression: Confusion, Hypokalemia Condition: Stable Instructions: ED Confusion Comments: You were seen in the emergency department for confusion, likely related to early signs of dementia. You had a normal ct scan with no signs of stroke or internal bleeding in the brain. Your labwork showed some mildly low potassium that can be rechecked. Please follow-up with your primary care provider and return to the emergency department if you have any new or worsening symptoms or other concerns. Forms: PCP List
[2023-04-29 19:57] LABS: BASOPHILS % (AUTO) 0.3 %; EOSINOPHILS % (AUTO) 0.1 %; HCT - HEMATOCRIT 41.8 % (37.0-47.0); HGB - HEMOGLOBIN 14.3 g/dL (12.0-16.0); LYMPHOCYTES # (AUTO) 1.6 10^3/uL (1.5-3.5); LYMPHOCYTES % (AUTO) 11.6 %; MEAN CORPUSCULAR HEMOGLOBIN 31.8 pg (27.0-31.0); MEAN CORPUSCULAR HGB CONC 34.2 g/dL (32.0-36.0); MEAN CORPUSCULAR VOLUME 92.9 fL (81.0-99.0); MEAN PLATELET VOLUME 9.3 fL (7.9-10.8); MONOCYTES # (AUTO) 0.6 10^3/uL (0.0-1.0); MONOCYTES % (AUTO) 4.1 %; NEUTROPHILS # (AUTO) 11.8 10^3/uL (1.5-6.6); NEUTROPHILS % (AUTO) 83.7 %; PLT - PLATELET COUNT 270 10^3/uL (130-450); RED CELL DISTRIBUTION WIDTH 12.4 % (12.0-15.0); WHITE BLOOD COUNT 14.1 x10^3/uL (4.8-10.8)
[2023-04-29 20:00] LABS: BILIRUBIN,URINE NEGATIVE (NEGATIVE); GLUCOSE, URINE (UA) NEGATIVE (NEGATIVE); KETONES,URINE (UA) 15 mg/dL (NEGATIVE); LEUKOCYTE ESTERASE, URINE NEGATIVE (NEGATIVE); NITRITE,URINE NEGATIVE (NEGATIVE); OCCULT BLOOD,URINE NEGATIVE (NEGATIVE); PROTEIN,URINE NEGATIVE (NEGATIVE); UROBILINOGEN,URINE 0.2 (NORMAL) E.U./dL (NORMAL)
[2023-04-29 20:01] LABS: CLARITY,URINE HAZY (CLEAR)
[2023-04-29 20:11] LABS: RBC,URINE 0-5 /HPF (0-5); SQUAMOUS EPITHELIAL CELL,UR FEW Squamous (<= Few); WBC,URINE 0-3 /HPF (0-5)
[2023-04-29 20:12] LABS: AMORPHOUS SEDIMENT,UR Few /LPF; BACTERIA,URINE Moderate /HPF (None Seen); MUCUS,URINE Few Strands
[2023-04-29 20:13] LABS: ALBUMIN 4.9 g/dL (3.2-5.5); BILIRUBIN,TOTAL 0.9 mg/dL (0.2-1.0); CALCIUM 10.5 mg/dL (8.5-10.3); CREATININE 1.1 mg/dL (0.6-1.3); POTASSIUM 3.2 mmol/L (3.5-4.5); TOTAL PROTEIN 7.3 g/dL (6.4-8.9)
--- NOTE | 2023-04-29 20:44 | CT Report ---
PROCEDURE: HEAD WO INDICATIONS: confusion X several months TECHNIQUE: Noncontrast 4.5 mm thick angled axial sections acquired from the foramen magnum to the vertex. For r adiation dose reduction, the following was used: automated exposure control, adjustment of mA and/or kV according to patient size. COMPARISON: None. FINDINGS: Image quality: Excellent. CSF spaces: Basal cisterns are patent. No extra-axial fluid collections. Ventricles are normal in size and shape. Brain: No midline shift. No intracranial masses or hemorrhage. Bro-white matter interface is norm al. Leukoaraiosis, commonly caused by chronic small vessel ischemic disease. Age-related volume loss . Skull and face: Calvarium and visualized facial bones are intact, without suspicious lesions. Sinuses: Visualized sinuses and mastoids are clear. IMPRESSION: No acute intracranial pathology. Reviewed by: Jonathan Aguilar on 04/29/2023 8:43 PM [facility] Approved by: Jonathan Aguilar on 04/29/2023 8:43 PM [facility] Station ID: [id number]
[2023-04-29] MEDS ORDERED: POTASSIUM CHLORIDE 20 MEQ TABLET PO STA (22:14)
[2023-04-29 23:03] VITALS: BP 127/89; O2SAT 98
== END 2023-04-29 22:52 | disposition home or self-care (01) ==
LOC: EDUNIT# → ED 19:14
DX: R41.0 Disorientation, unspecified (principal); E87.6 Hypokalemia
CPT/HCPCS: 36415; 70450; 80053; 81001; 83690; 85025; 99284; A9270; 81003; 87086